=== PATIENT | female | born 1965 | race Caucasian/White ===

== ENCOUNTER 2021-12-14 05:24 | Day surgery (SDC) | payer OTHER ==
[2021-12-07 15:14] LABS: BASOPHILS % (AUTO) 0.5 % (0-1); EOSINOPHILS # (AUTO) 0.1 X10'3 (0-0.9); LYMPHOCYTES # (AUTO) 1.9 X10'3 (1.1-4.8); LYMPHOCYTES % (AUTO) 27.3 % (21-51); MEAN CORPUSCULAR HEMOGLOBIN 30.8 PG (27.0-31.0); MEAN CORPUSCULAR HGB CONC 34.1 g/dL (33.0-36.5); MEAN CORPUSCULAR VOLUME 90.4 FL (78-98); MEAN PLATELET VOLUME 7.9 FL (7.4-10.4); MONOCYTES # (AUTO) 0.6 X10'3 (0-0.9); MONOCYTES % (AUTO) 8.9 % (2-12); NEUTROPHILS # (AUTO) 4.3 X10'3 (1.8-7.7); NEUTROPHILS % (AUTO) 62.3 % (42-75); PRE OP HEMATOCRIT 42.6 % (35.0-45.0); PRE OP HEMOGLOBIN 14.5 g/dL (12.0-16.0); PRE OP PLATELET COUNT 270 X10'3 (140-440); RED BLOOD COUNT 4.72 X10'6 (4.20-5.60); RED CELL DISTRIBUTION WIDTH 13.2 % (11.5-14.5)
[2021-12-07 15:17] LABS: ALBUMIN 3.7 G/DL (3.4-5.0); ALKALINE PHOSPHATASE 72 IU/L (46-116); BLOOD UREA NITROGEN 14 MG/DL (7-18); BUN/CREATININE RATIO 18.7 (6.6-38.0); CALCIUM 8.8 MG/DL (8.5-10.1); CHLORIDE 106 MMOL/L (99-107); CREATININE 0.75 MG/DL (0.40-0.90); PRE OP ALT 15 U/L (30-65); PRE OP ANION GAP 7 (8-16); PRE OP AST 16 U/L (10-37); PRE OP BILIRUB, TOTAL 0.2 MG/DL (0.0-1.0); PRE OP GLUCOSE 93 MG/DL (70-104); PRE OP POTASSIUM 4.4 MMOL/L (3.4-5.1); PRE OP SODIUM 142 MMOL/L (135-145); TOTAL PROTEIN 7.3 G/DL (6.4-8.2); eGFR 80 ML/MIN
[2021-12-14] VITALS (10 sets, daily range): BP systolic 122–132; BP diastolic 74–87
[~2021-12-14] VITALS: Ht 165.1 cm; Wt 78.0 kg
[~2021-12-14 05:24] MED LIST: NO HOME MEDS; ringers solution, lacted 1,000 ML IV SCH
[2021-12-14] MEDS ORDERED: famotidine 20mg tablet PO ONE (05:30)
[2021-12-14] MEDS ORDERED: cefazolin/dext.iso 2gm/50ml IV ONE (05:30)
[2021-12-14] MEDS ORDERED: ketorolac trometh. 30mg/ml inj. ONE (06:45)
[2021-12-14] MEDS ORDERED: epiNEPHrine 1 mg/ml inj ONE (06:45)
[2021-12-14] MEDS ORDERED: LIDOcaine 1% 30ml preserv. free vial ONE (06:46)
[2021-12-14] MEDS ORDERED: BUPIVAcaine 0.5% inj/PF 30 ML ONE (06:46)
[2021-12-14] MEDS ORDERED: fentaNYL/PF 50MCG/1 ML 2ML syringe ONE (07:14)
[2021-12-14] MEDS ORDERED: midazolam 1 mg/ML 2ml injection ONE (07:14)
[2021-12-14] MEDS ORDERED: propofol inj 20 ML IV ONE (07:15)
[2021-12-14] MEDS ORDERED: ondansetron/PF 4mg/2ml inj ONE (07:27)
[2021-12-14] MEDS ORDERED: dexamethasone sod phosphate 4mg/ml inj. ONE (08:07)
--- NOTE | 2021-12-14 08:16 | NUR ---
Received from OR via , accompanied by Anesthesiologist DR HAWKINS and report given by Anesthesiolgist. PT PRESENTS WITH 20 G LEFT WRIST, SRESSING ON RIGHT KNEE DRY AND INTACT, VSS. Addendum: 12/14/21 at 0824 by Brianda James RN, RN Amended: Links added.
[2021-12-14] MEDS ORDERED: HYDROcodone/acetaminophen 10/325mg tab PO PRN (08:20)
[2021-12-14] MEDS ORDERED: proCHLORperazine 10 MG/2 ml inj IV PRN (08:25)
[2021-12-14] MEDS ORDERED: meperidine/PF 25mg/ml syringe IV PRN ×3 (08:25)
[2021-12-14] MEDS ORDERED: ringers solution, lacted 1,000 ML IV SCH (08:25)
[2021-12-14] MEDS ORDERED: ondansetron/PF 4mg/2ml inj IV PRN (08:25)
[2021-12-14] MEDS ORDERED: morphine 4 MG/ML inj SYRINge IV PRN (08:25)
[2021-12-14] MEDS ORDERED: morphine 2 MG/ML inj. syringe IV PRN (08:25)
--- NOTE | 2021-12-14 09:26 | NUR ---
PATIENT A&OX4, DENIES PAIN, V/S WNL., RIGHT KNEE DRESSING CDI. ICE AND ELEVATED RE. I HAVE REVIEWED D/C INSTRUCTIONS WITH PATIENT and they have verbalized understanding patient d/c home with all belongings and family gave transport home. Addendum: 12/14/21 at 0939 by Brianda James RN, RN Amended: Links added.
== END 2021-12-14 09:26 | disposition home or self-care (01) ==
LOC: PAS 05:24
PROVIDERS: ATTEND Orthopaedic Surgery
DX: S83.251A Bucket-handle tear of lateral meniscus, current injury, right knee, initial encounter (principal); Z87.891 Personal history of nicotine dependence; Z98.890 Other specified postprocedural states; Z88.0 Allergy status to penicillin; Z85.820 Personal history of malignant melanoma of skin; Z79.899 Other long term (current) drug therapy; Z20.822 Contact with and (suspected) exposure to COVID-19; X50.1XXA Overexertion from prolonged static or awkward postures, initial encounter; Y93.89 Activity, other specified; Y92.89 Other specified places as the place of occurrence of the external cause; Y99.8 Other external cause status
CPT/HCPCS: 29881; 36415; 80053; 82948; 85025; 93005; J0171; J0690; J1100; J1885; J2250; J2405; J2704; J3010; J3490; J7120; S0020; U0003; U0005; Z7506; Z7508; Z7512; A4215; A4618; A6449; A7000